=== PATIENT | female | born 1930 | race Caucasian/White ===

== ENCOUNTER 2021-06-14 10:56 | Emergency (ER) | payer MEDICARE ==
[~2021-06-14] VITALS: Ht 167.6 cm; Wt 45.4 kg
[~2021-06-14 10:56] MED LIST: JUICE PLUS PO; NORCO 7.5-3251 EACH PO; OMEPRAZOLE40 MG PO; VITAMIN D1000 UNI1 PO; XANAX0.5 MG PO
[2021-06-14] MEDS ORDERED: SODIUM CHLORIDE 0.9% 500ML 500 ML IV STA (11:12)
[2021-06-14] MEDS ORDERED: ONDANSETRON HCL INJ 2MG/ML 2ML 2 MG/ML VIAL IV ONE (11:15)
[2021-06-14] MEDS ORDERED: FAMOTIDINE 20 MG/2 ML VIAL IV ONE ×2 (11:15→11:42)
[2021-06-14] MEDS ORDERED: ONDANSETRON HCL INJ 2MG/ML 2ML 2 MG/ML VIAL ONE (11:42)
[2021-06-14] MEDS ORDERED: SODIUM CHLORIDE 0.9% 500ML 500 ML ONE (11:42)
[2021-06-14] MEDS ORDERED: IOPAMIDOL 370 MG/ML 200 ML INFUS..BTL INJ ONE (11:59)
[2021-06-14] MEDS ORDERED: SODIUM CHLORIDE 0.9% 50ML 50 ML ONE (11:59)
[2021-06-14] MEDS ORDERED: PANTOPRAZOLE SO40 MG PO (13:14)
[2021-06-14] MEDS ORDERED: ONDANSETRON ODT4 MG PO (13:14)
[2021-06-14 13:24] VITALS: BP 145/67
== END 2021-06-14 13:27 | disposition home or self-care (01) ==
LOC: FSED 11:04
DX: R11.2 Nausea with vomiting, unspecified (principal); K29.70 Gastritis, unspecified, without bleeding; K58.0 Irritable bowel syndrome with diarrhea; R10.9 Unspecified abdominal pain; M54.9 Dorsalgia, unspecified; G89.29 Other chronic pain
CPT/HCPCS: 74177; 80048; 80076; 81003; 85025; 96374; 96376; 99283; J2405; J7040; Q9967